=== PATIENT | male | born 1990 | race Caucasian/White ===

== ENCOUNTER 2018-03-08 08:58 | Inpatient (IN) | payer SELFPAY ==
[~2018-03-08] VITALS: Ht 180.3 cm; Wt 72.6 kg
[2018-03-08] MEDS ORDERED: SODIUM CHLORIDE 0.9% 1,000 ML IV ONE (09:14)
[2018-03-08] MEDS ORDERED: MORPHINE SULFATE 4 MG/ML CPJ (NOT FOR IM USE) IV ONE (09:15)
[2018-03-08] MEDS ORDERED: ONDANSETRON HCL 4MG/2ML INJ IV ONE (09:15)
[2018-03-08 09:41] LABS: BASOPHILS % 0.1 % (0.0-2.0); EOSINOPHILS % 0.2 % (0.0-5.0); HEMATOCRIT. 43.9 % (42.0-52.0); HEMOGLOBIN. 15.4 g/dL (14.0-18.0); LYMPHOCYTES % 10.6 % (20.0-50.0); MEAN CORPUSCULAR HEMOGLOBIN 31.2 pg (28.0-32.0); MEAN PLATELET VOLUME 10.9 fl (7.4-10.4); MONOCYTES % 7.5 % (2.0-8.0); NEUTROPHILS % 81.6 % (40.0-76.0); PLATELET 184 x1000/uL (130-400); RED BLOOD CELL COUNT 4.93 mill/uL (4.7-6.1); RED CELL DISTRIBUTION WIDTH 12.9 % (11.6-14.6)
[2018-03-08 09:47] LABS: INR 1.1; PARTIAL THROMBOPLASTIN TIME 29.4 sec (23.4-31.0); PROTHROMBIN TIME 10.6 sec (9.1-11.1)
[2018-03-08 09:48] LABS: CHLORIDE 108 mEq/L (98-107)
[2018-03-08 09:52] LABS: CREATINE KINASE 613 IU/L (39-308)
[2018-03-08 10:00] LABS: ETHANOL BLOOD < 10 mg/dL
[2018-03-08] MEDS ORDERED: VANCOMYCIN 1 G PREMIX 200 ML IV ONE (10:45)
[2018-03-08] MEDS ORDERED: DEXAMETHASONE 10 MG in SODIUM CHLORIDE 0.9% 50 ML IV ONE (10:45)
[2018-03-08] MEDS ORDERED: CEFTRIAXONE 2 G PREMIX 50 ML IV ONE (10:45)
[2018-03-08] MEDS ORDERED: DEXAMETHASONE 10 MG/ML VIAL ONE (10:56)
[2018-03-08] MEDS ORDERED: DEXAMETHASONE 10 MG/ML VIAL IV ONE (10:56)
[2018-03-08] MEDS ORDERED: IOHEXOL-300 100 ML BOTTLE ONE (10:58)
[2018-03-08 12:03] LABS: CLARITY URINE CLOUDY (CLEAR); COLOR URINE YELLOW (YELLOW); KETONES URINE 1+ (NEGATIVE); LEUKOCYTE ESTERASE URINE NEGATIVE (NEGATIVE); NITRITE URINE NEGATIVE (NEGATIVE); OCCULT BLOOD URINE NEGATIVE (NEGATIVE); PROTEIN URINE NEGATIVE (NEGATIVE); SPECIFIC GRAVITY URINE 1.031 (1.005-1.030); UROBILINOGEN URINE 0.2 E.U./dL (0.2-1.0)
[2018-03-08 12:16] LABS: *AMPHETAMINES SCREEN URINE NEGATIVE (NEGATIVE); *BARBITURATES SCREEN URINE NEGATIVE (NEGATIVE); *BENZODIAZEPINES SCREEN URINE NEGATIVE (NEGATIVE); *COCAINE SCREEN URINE NEGATIVE (NEGATIVE)
[2018-03-08 12:17] LABS: CANNABINOID URINE SCREEN PRESUMTIVE POSITIVE (NEGATIVE); METHADONE URINE SCREEN NEGATIVE (NEGATIVE); OPIATES URINE SCREEN PRESUMTIVE POSITIVE (NEGATIVE); PHENCYCLIDINE URINE SCREEN NEGATIVE (NEGATIVE)
[2018-03-08 12:56] LABS: GLUCOSE CSF 64 mg/dL (41-75)
[2018-03-08 16:00] VITALS: BP 120/69
[2018-03-08] MEDS ORDERED: CLONIDINE 0.1MG TABLET PO PRN (16:15)
[2018-03-08] MEDS ORDERED: ACETAMINOPHEN 325MG TABLET PO PRN (16:15)
[2018-03-08] MEDS ORDERED: HYDROCODONE/ACETAMINOPHEN 5/325MG TABLET PO PRN (16:15)
[2018-03-08] MEDS ORDERED: LORAZEPAM 2MG/ML CPJ IV PRN (16:15)
[2018-03-08] MEDS ORDERED: DOCUSATE SODIUM 100MG CAPSULE PO PRN (16:15)
[2018-03-08] MEDS ORDERED: IPRATROPIUM/ALBUTEROL 0.5-3(2.5)MG/3ML NEB INH PRN (16:15)
[2018-03-08] MEDS ORDERED: DIPHENHYDRAMINE 50MG/ML VIAL IV PRN (16:15)
[2018-03-08] MEDS ORDERED: MAGNESIUM/ALUMINUM HYDROXIDE/SIMETHICONE 30ML UDC PO PRN (16:15)
[2018-03-08] MEDS ORDERED: MORPHINE SULFATE 4 MG/ML CPJ (NOT FOR IM USE) IV PRN (16:15)
[2018-03-08] MEDS ORDERED: GUAIFENESIN 200MG/10ML SUGAR FREE UDC PO PRN (16:15)
[2018-03-08] MEDS ORDERED: NA PHOS,M-B/NA PHOS,DI-BA ENEMA 118ML PR PRN (16:15)
[2018-03-08] MEDS ORDERED: ONDANSETRON HCL 4MG/2ML INJ IV PRN (16:15)
[2018-03-08] MEDS ORDERED: ROCEPHIN XX SCH (16:45)
[2018-03-08] MEDS ORDERED: ENOXAPARIN 40MG/0.4ML SYR SUBCUT SCH (17:00)
[2018-03-08 17:39] LABS: CHLORIDE 109 mEq/L (98-107)
[2018-03-08] MEDS: SODIUM CHLORIDE 0.45% 1,000 ML IV SCH (17:44)
[2018-03-08 20:00] VITALS: BP 105/72
[2018-03-09] VITALS: BP 104/52
[2018-03-09 04:00] VITALS: BP 128/66
[2018-03-09 06:51] LABS: EOSINOPHILS % 0.1 % (0.0-5.0); HEMATOCRIT. 41.8 % (42.0-52.0); HEMOGLOBIN. 14.4 g/dL (14.0-18.0); LYMPHOCYTES % 14.2 % (20.0-50.0); MEAN CORPUSCULAR HEMOGLOBIN 31.1 pg (28.0-32.0); MEAN PLATELET VOLUME 10.8 fl (7.4-10.4); MONOCYTES % 8.4 % (2.0-8.0); NEUTROPHILS % 77.3 % (40.0-76.0); PLATELET 172 x1000/uL (130-400); RED BLOOD CELL COUNT 4.64 mill/uL (4.7-6.1)
[2018-03-09 07:11] LABS: CHLORIDE 109 mEq/L (98-107)
[2018-03-09 07:51] LABS: HDL CHOLESTEROL 40 mg/dL (40-59); LDL CHOLESTEROL 80 mg/dL (5-100); T4 FREE 1.26 ng/dL (0.76-1.46)
[2018-03-09 08:00] VITALS: BP 122/76
[2018-03-09] MEDS: SODIUM CHLORIDE 0.45% 1,000 ML IV SCH (08:40)
[2018-03-09] MEDS ORDERED: CEFTRIAXONE 2 G in DEXT 5% WATER 100 ML IV SCH (11:00)
[2018-03-09] MEDS ORDERED: CEFTRIAXONE 2 G in DEXTROSE 5% WATER 50 ML IV SCH ×2 (11:00→21:00)
[2018-03-09 12:00] VITALS: BP 118/79
== END 2018-03-09 15:19 | disposition left against medical advice (07) | DRG 53 ==
LOC: ER 09:16 → EDBEDREQ 11:07 → 7WST 13:01 → EDBEDREQ 13:04 → ENRESERV 13:16
PROVIDERS: ADMIT Internal Medicine; ATTEND Internal Medicine
PROC: 009U3ZX Drainage of Spinal Canal, Percutaneous Approach, Diagnostic (ICD-10-PCS; principal; 2018-03-08)
PROC: B01B1ZZ Fluoroscopy of Spinal Cord using Low Osmolar Contrast (ICD-10-PCS; 2018-03-08)
DX: G40.89 Other seizures (principal); G92 Toxic encephalopathy; S32.019A Unspecified fracture of first lumbar vertebra, initial encounter for closed fracture; S32.039A Unspecified fracture of third lumbar vertebra, initial encounter for closed fracture; F11.90 Opioid use, unspecified, uncomplicated; F12.90 Cannabis use, unspecified, uncomplicated; D72.829 Elevated white blood cell count, unspecified; Z53.21 Procedure and treatment not carried out due to patient leaving prior to being seen by health care provider; H53.149 Visual discomfort, unspecified; G43.909 Migraine, unspecified, not intractable, without status migrainosus; X58.XXXA Exposure to other specified factors, initial encounter; Y93.89 Activity, other specified; Y92.89 Other specified places as the place of occurrence of the external cause; Y99.8 Other external cause status; Z91.14 Patient's other noncompliance with medication regimen
CPT/HCPCS: 36415; 62270; 70496; 70498; 72070; 72100; 77003; 80048; 80061; 80305; 82550; 82945; 84157; 84439; 84443; 84484; 87070; 96361; 96365; 96375; 99285; G0482; J0696; J1100; J1650; J2270; J2405; J3370; J7030; J7060; Q9967

== ENCOUNTER 2021-01-10 19:03 | Emergency (ER) | payer OTHER ==
[~2021-01-10] VITALS: Ht 180.3 cm; Wt 73.0 kg
[2021-01-10 19:35] VITALS: BP 135/69
== END 2021-01-10 19:45 | disposition left against medical advice (07) ==
LOC: ER 19:03
DX: R56.9 Unspecified convulsions (principal)
CPT/HCPCS: 99283